=== PATIENT | male | born 1980 | race Two or more races ===

== ENCOUNTER 2025-06-17 06:11 | Day surgery (SDC) | payer OTHER ==
[2025-06-10 10:00] VITALS: BP 133/89
[2025-06-10 10:29] LABS: BASO % 0.9 % (0.1-1.2); EOS # 0.21 (0.04-0.54); EOS % 4.7 % (0.7-7.0); LYMPH # 1.99 (1.18-3.74); LYMPH % 44.2 % (19.3-53.1); MEAN PLATELET VOLUME 10.30 fl (9.4-12.4); MONO # 0.30 (0.24-0.82); MONO % 6.7 % (4.7-12.5); NEUT # 1.95 (1.56-6.13); NEUT % 43.3 % (34.0-71.1); RED CELL DISTRIBUTION WIDTH 12.7 % (11.6-14.4)
[2025-06-10 10:29] LABS: URINE APPEARANCE Clear; URINE BILIRRUBIN Negative (NEGATIVE); URINE BLOOD Negative; URINE COLOR Yellow; URINE GLUCOSE Negative (NEGATIVE); URINE KETONE Negative (NEGATIVE); URINE LEUKOCYTE Negative; URINE NITRATE Negative; URINE PROTEIN Negative (NEGATIVE); URINE UROBILINOGEN 0.2 E.U./dl
[2025-06-10 10:36] LABS: URINE BACTERIA 4.8 uL (0.0-1933); URINE EPITHELIAL CELLS 1.6 uL (0.0-38.8); URINE WBC 2.9 uL (0.0-23.2)
[2025-06-10 11:16] LABS: URINE CAST 0.14 uL (0.0-1.40); URINE RBC 0.7 uL (0.0-20.8)
[2025-06-10 11:30] LABS: ALT/SGPT 36.0 U/L (12-78); AST/SGOT 20.0 U/L (15-37); BILIRUBIN TOTAL 0.79 mg/dL (0.3-1.2); BUN CREA RATIO 19.0 (7.0-25.0); CREATININE SERUM 1.08 mg/dL (0.70-1.30); GFR 73.61; GLOBULINA 2.9 G/DL (2.4-3.5); GLUCOSE FASTING 85.0 mg/dL (65-100); OSMOLALITY SERUM 287.0 MOSM/KG (275-295)
[2025-06-10 11:52] LABS: INR 1.0
[~2025-06-17] VITALS: Ht 170.2 cm; Wt 86.2 kg
[2025-06-17] MEDS ORDERED: LEVALBUTEROL HCL 0.63 MG/3 ML SOLUTION IH ONE (16:50)
[2025-06-17] MEDS ORDERED: ISOPROPYL ALCOHOL 30 ML OUNCE TOP ONE (18:00)
[2025-06-17] MEDS ORDERED: CEFAZOLIN SODIUM 1,000 MG VIAL IV ONE (18:00)
[2025-06-17] MEDS ORDERED: BUPIVACAINE HCL/PF 0.25% 30ML VIAL InF ONE (18:00)
[2025-06-17] MEDS ORDERED: MORPHINE SULFATE 4 MG/ML VIAL IV ONE ×3 (19:45)
[2025-06-17] MEDS ORDERED: ONDANSETRON HCL 2 MG/ML VIAL IV ONE ×2 (20:00)
== END 2025-06-17 21:30 | disposition home or self-care (01) ==
LOC: CIR.AMB 06:11
PROVIDERS: ATTEND Orthopaedic Surgery Hand Surgery
DX: M72.0 Palmar fascial fibromatosis [Dupuytren] (principal)